=== PATIENT | male | born 1975 | race Two or more races ===

== ENCOUNTER 2016-04-05 14:16 | Inpatient (IN) | payer MEDICAID ==
[~2016-04-05] VITALS: Ht 177.8 cm; Wt 109.8 kg
[~2016-04-05 14:16] MED LIST: ALBUAER3 IN; CARI-277 PO; CARV6.25 PO; DIP25C PO; FAMO40TA49 OR; FURO20TA PO; HYDR-2457 PO; LACT10SO PO; LOSA50TA6 PO; MET10T PO; OMEP20CA5 PO; SIMV-13 OR
[2016-04-05 15:45] LABS: Basophils # (auto) 0 uL; Basophils % (auto) 0.7 % (0.0-2.0); Eosinophils # (auto) 0.1 uL; Eosinophils % (auto) 1.6 % (0.0-7.0); Hematocrit 52.4 % (41.0-53.0); Hemoglobin 17.2 g/dL (13.5-17.5); Lymphocytes # (auto) 2.1 uL; Lymphocytes % (auto) 28.2 % (10.0-50.0); Mean Corpuscular Hemoglobin 31.1 pg (28.0-32.0); Mean Corpuscular Hgb Conc. 32.8 g/dL (32.0-36.0); Mean Corpuscular Volume 94.9 fL (80.0-100.0); Mean Platelet Volume 8.6 fL (7.4-10.4); Monocytes # (auto) 0.7 uL; Monocytes % (auto) 9.6 % (0.0-12.0); Neutrophils # (auto) 4.5 uL; Neutrophils % (auto) 59.9 % (37.0-80.0); Platelet Count (auto) 256 10^3/uL (140-450); Red Cell Distribution Width 12.5 % (11.6-16.0); White Blood Cell 7.5 10^3/uL (4.4-10.8)
[2016-04-05 16:05] LABS: INR 1.06 (0.9-1.15); Partial Thromboplastin Time 24.2 sec (22.64-33.71); Prothrombin Time 10.9 sec (9.37-12.3)
[2016-04-05 16:12] LABS: Albumin 3.4 g/dL (3.4-5.0); BUN/Creatinine Ratio 11.8; Bilirubin, Total 0.3 mg/dL (0.2-1.0); Calcium 9.2 mg/dL (8.5-10.1); Potassium 4.5 mmol/L (3.5-5.1); Total Protein 7.4 g/dL (6.4-8.2)
[2016-04-05 16:16] LABS: B-Type Natriuretic Peptide 27.66 pg/mL (0-100)
[2016-04-05] MEDS ORDERED: ACETAMINOPHEN 325 MG TAB PO ONE ×2 (16:32→16:45)
[2016-04-05 16:58] LABS: Temperature: 22.4 C (20.0-25.0)
[2016-04-05] MEDS ORDERED: ONDANSETRON HCL 4 MG/2 ML VIAL IV ONE (18:15)
[2016-04-05] MEDS ORDERED: MORPHINE SULF INJ 2 MG/ML SYRINGE 1ML IV ONE (18:15)
[2016-04-05] MEDS ORDERED: MORPHINE SULF INJ 2 MG/ML SYRINGE 1ML IV PRN (18:30)
[2016-04-05] MEDS ORDERED: cefTRIAXone 1GM/50ML D5W 50 ML IV ONE (18:30)
[2016-04-05] MEDS ORDERED: LACTULOSE 20Gm/30ML SOLN PO PRN (18:30)
[2016-04-05] MEDS ORDERED: ACETAMINOPHEN 325 MG TAB PO PRN (18:30)
[2016-04-05] MEDS ORDERED: NITROGLYCERIN 0.4 MG SL TAB SL PRN (18:30)
[2016-04-05] MEDS ORDERED: CARISOPRODOL 350 MG TAB PO PRN (18:30)
[2016-04-05] MEDS ORDERED: ONDANSETRON HCL 4 MG/2 ML VIAL IV PRN (18:30)
[2016-04-05] MEDS ORDERED: diphenhdrAMINE HCL 25 MG CAP PO PRN (18:30)
[2016-04-05] MEDS ORDERED: TEMAZEPAM 15 MG CAP PO PRN (18:30)
[2016-04-05] MEDS: FUROSEMIDE 20 MG TAB PO SCH (18:36)
[2016-04-05 20:49] VITALS: BP 140/83
[2016-04-05 21:33] VITALS: BP 125/75
[2016-04-05] MEDS: MORPHINE SULF INJ 2 MG/ML SYRINGE 1ML IV PRN (22:23)
[2016-04-05] MEDS: METOCLOPRAMIDE HCL 10 MG TAB PO SCH (22:27)
[2016-04-05] MEDS: POTASSIUM CHLORIDE 8 MEQ TAB PO SCH (22:27)
[2016-04-05] MEDS: ATORVASTATIN 20 MG TAB PO SCH (22:27)
[2016-04-05] MEDS: FAMOTIDINE 20 MG TAB PO SCH (22:27)
[2016-04-05] MEDS: SODIUM CHLOR 0.9% PF (SALINE LOCK) 10ML VIAL IV SCH (22:31)
[2016-04-05] MEDS: CARVEDILOL 3.125 MG TAB PO SCH (22:31)
[2016-04-05 22:37] VITALS: BP 125/75
[2016-04-06] MEDS: IPRATROPIUM BROM 0.5 MG/2.5ML INH SOL NEB SCH ×4 (00:45→20:10)
[2016-04-06] MEDS: ALBUTEROL SULF 2.5 MG/0.5ML(0.5%) NEB SOLN NEB SCH ×4 (00:45→20:09)
[2016-04-06 01:22] VITALS: BP 125/75
[2016-04-06] MEDS: SODIUM CHLOR 0.9% PF (SALINE LOCK) 10ML VIAL IV SCH ×3 (05:04→22:25)
[2016-04-06] MEDS: MORPHINE SULF INJ 2 MG/ML SYRINGE 1ML IV PRN ×5 (05:05→23:47)
[2016-04-06] MEDS: METOCLOPRAMIDE HCL 10 MG TAB PO SCH ×3 (05:56→21:48)
[2016-04-06] MEDS: FUROSEMIDE 20 MG TAB PO SCH ×2 (05:57→17:45)
[2016-04-06 07:21] LABS: Basophils # (auto) 0 uL; Basophils % (auto) 0.6 % (0.0-2.0); Eosinophils # (auto) 0.2 uL; Eosinophils % (auto) 2.6 % (0.0-7.0); Hematocrit 53.8 % (41.0-53.0); Hemoglobin 17.2 g/dL (13.5-17.5); Lymphocytes # (auto) 2.9 uL; Lymphocytes % (auto) 35.3 % (10.0-50.0); Mean Corpuscular Hemoglobin 30.8 pg (28.0-32.0); Mean Platelet Volume 9.4 fL (7.4-10.4); Monocytes # (auto) 0.8 uL; Monocytes % (auto) 9.9 % (0.0-12.0); Neutrophils # (auto) 4.2 uL; Neutrophils % (auto) 51.6 % (37.0-80.0); Platelet Count (auto) 259 10^3/uL (140-450); Red Cell Distribution Width 12.5 % (11.6-16.0); White Blood Cell 8.1 10^3/uL (4.4-10.8)
[2016-04-06 08:00] VITALS: BP 117/85
[2016-04-06 08:40] LABS: Albumin 3.4 g/dL (3.4-5.0); BUN/Creatinine Ratio 13.5; Bilirubin, Total 0.3 mg/dL (0.2-1.0); Calcium 8.6 mg/dL (8.5-10.1); Potassium 3.9 mmol/L (3.5-5.1); Total Protein 7.4 g/dL (6.4-8.2)
[2016-04-06 09:00] VITALS: BP 117/85
[2016-04-06] MEDS: MULTIPLE VITAMIN TAB PO SCH (09:06)
[2016-04-06] MEDS: FAMOTIDINE 20 MG TAB PO SCH ×2 (09:06→21:47)
[2016-04-06] MEDS: cefTRIAXone 1GM/50ML D5W 50 ML IV SCH (09:06)
[2016-04-06] MEDS: POTASSIUM CHLORIDE 8 MEQ TAB PO SCH ×2 (09:06→21:48)
[2016-04-06] MEDS: CARVEDILOL 3.125 MG TAB PO SCH ×2 (09:07→21:46)
[2016-04-06] MEDS: LOSARTAN POTASSIUM 50 MG TAB PO SCH (09:07)
[2016-04-06] MEDS: HYDROcodone-ACET 10/325MG TAB PO PRN ×2 (09:09→21:47)
[2016-04-06 13:00] VITALS: BP 118/70
[2016-04-06 14:32] LABS: Urine Bilirubin Negative (Negative); Urine Blood TRACE /uL (Negative); Urine Color Yellow (Yellow); Urine Glucose Normal (Normal); Urine Ketone Negative (Negative); Urine Mucus FEW (None Seen); Urine Nitrite Negative (Negative); Urine RBC <1 /hpf (0 - 3); Urine Urobilinogen Normal (Negative); Urine pH 5.5 (5.0-8.0)
[2016-04-06 16:44] VITALS: BP 123/69
[2016-04-06] MEDS ORDERED: PNEUMOCOCCAL VACC POLYS 25 MCG/0.5 ML VIAL IM ONE (17:15)
[2016-04-06] MEDS: ATORVASTATIN 20 MG TAB PO SCH (21:45)
[2016-04-06 22:00] VITALS: BP 129/77
[2016-04-07] MEDS: MORPHINE SULF INJ 2 MG/ML SYRINGE 1ML IV PRN ×4 (04:25→17:27)
[2016-04-07 05:00] VITALS: BP 122/73
[2016-04-07] MEDS: SODIUM CHLOR 0.9% PF (SALINE LOCK) 10ML VIAL IV SCH ×2 (05:46→14:16)
[2016-04-07] MEDS: FUROSEMIDE 20 MG TAB PO SCH ×2 (05:52→17:33)
[2016-04-07] MEDS: METOCLOPRAMIDE HCL 10 MG TAB PO SCH ×2 (05:54→14:33)
[2016-04-07 05:59] LABS: Basophils # (auto) 0.1 uL; Basophils % (auto) 0.5 % (0.0-2.0); Eosinophils # (auto) 0.2 uL; Hematocrit 51.9 % (41.0-53.0); Lymphocytes # (auto) 2.6 uL; Lymphocytes % (auto) 27.4 % (10.0-50.0); Mean Corpuscular Hemoglobin 31.1 pg (28.0-32.0); Mean Corpuscular Hgb Conc. 32.8 g/dL (32.0-36.0); Mean Corpuscular Volume 94.9 fL (80.0-100.0); Mean Platelet Volume 8.7 fL (7.4-10.4); Monocytes # (auto) 0.9 uL; Monocytes % (auto) 9.7 % (0.0-12.0); Neutrophils # (auto) 5.8 uL; Neutrophils % (auto) 60.4 % (37.0-80.0); Platelet Count (auto) 252 10^3/uL (140-450); Red Cell Distribution Width 12.4 % (11.6-16.0); White Blood Cell 9.6 10^3/uL (4.4-10.8)
[2016-04-07 06:29] LABS: Albumin 3.4 g/dL (3.4-5.0); Bilirubin, Total 0.4 mg/dL (0.2-1.0); Calcium 8.7 mg/dL (8.5-10.1); Potassium 3.9 mmol/L (3.5-5.1)
[2016-04-07] MEDS: IPRATROPIUM BROM 0.5 MG/2.5ML INH SOL NEB SCH ×4 (07:25→19:03)
[2016-04-07] MEDS: ALBUTEROL SULF 2.5 MG/0.5ML(0.5%) NEB SOLN NEB SCH ×4 (07:25→19:03)
[2016-04-07] MEDS: cefTRIAXone 1GM/50ML D5W 50 ML IV SCH (08:49)
[2016-04-07] MEDS: POTASSIUM CHLORIDE 8 MEQ TAB PO SCH (08:51)
[2016-04-07] MEDS: FAMOTIDINE 20 MG TAB PO SCH (08:51)
[2016-04-07] MEDS: CARVEDILOL 3.125 MG TAB PO SCH (08:51)
[2016-04-07] MEDS: LOSARTAN POTASSIUM 50 MG TAB PO SCH (08:52)
[2016-04-07] MEDS: MULTIPLE VITAMIN TAB PO SCH (08:52)
[2016-04-07 09:16] VITALS: BP 115/56
[2016-04-07 11:49] VITALS: BP 106/49
[2016-04-07 17:30] VITALS: BP 126/77
== END 2016-04-07 19:35 | disposition left against medical advice (07) | DRG 144 ==
LOC: ER 14:19 → TELE 14:20 → TELE-WESTW 20:44
PROVIDERS: ADMIT Internal Medicine; ATTEND Internal Medicine
DX: J20.9 Acute bronchitis, unspecified (principal); I42.9 Cardiomyopathy, unspecified; I11.0 Hypertensive heart disease with heart failure; I50.32 Chronic diastolic (congestive) heart failure; J45.901 Unspecified asthma with (acute) exacerbation; E66.01 Morbid (severe) obesity due to excess calories; F17.210 Nicotine dependence, cigarettes, uncomplicated; I25.10 Atherosclerotic heart disease of native coronary artery without angina pectoris; Z53.21 Procedure and treatment not carried out due to patient leaving prior to being seen by health care provider; E78.5 Hyperlipidemia, unspecified; F41.9 Anxiety disorder, unspecified; G47.30 Sleep apnea, unspecified; Z23 Encounter for immunization; Z68.34 Body mass index [BMI] 34.0-34.9, adult; Z88.6 Allergy status to analgesic agent; Z88.8 Allergy status to other drugs, medicaments and biological substances; Z79.899 Other long term (current) drug therapy; Z82.3 Family history of stroke; Z82.49 Family history of ischemic heart disease and other diseases of the circulatory system; Z83.3 Family history of diabetes mellitus
CPT/HCPCS: 36415; 71020; 76705; 80053; 81001; 83690; 83880; 84484; 85025; 85610; 85730; 87070; 87077; 87186; 87205; 93005; 93306; 94640; 94761; 96365; 96375; G0434; J0696; J2405

== ENCOUNTER 2016-06-20 13:22 | Emergency (ER) | payer SELFPAY ==
[~2016-06-20] VITALS: Ht 177.8 cm; Wt 99.8 kg
[2016-06-20 14:07] LABS: Basophils # (auto) 0 uL; Basophils % (auto) 0.3 % (0.0-2.0); Eosinophils # (auto) 0.2 uL; Eosinophils % (auto) 2.2 % (0.0-7.0); Hematocrit 52.4 % (41.0-53.0); Hemoglobin 17.7 g/dL (13.5-17.5); Lymphocytes # (auto) 2.1 uL; Lymphocytes % (auto) 24.9 % (10.0-50.0); Mean Corpuscular Hemoglobin 31.5 pg (28.0-32.0); Mean Corpuscular Hgb Conc. 33.7 g/dL (32.0-36.0); Mean Corpuscular Volume 93.4 fL (80.0-100.0); Mean Platelet Volume 8.2 fL (7.4-10.4); Monocytes # (auto) 0.8 uL; Monocytes % (auto) 9.3 % (0.0-12.0); Neutrophils # (auto) 5.4 uL; Neutrophils % (auto) 63.3 % (37.0-80.0); Platelet Count (auto) 275 10^3/uL (140-450); Red Cell Distribution Width 12.9 % (11.6-16.0); White Blood Cell 8.6 10^3/uL (4.4-10.8)
[2016-06-20 14:30] LABS: Albumin 3.6 g/dL (3.4-5.0); Alkaline Phosphatase 72 U/L (45-117); Anion Gap 6 (5-15); Aspartate Aminotransferase 23 U/L (15-37); BUN/Creatinine Ratio 12.5; Bilirubin, Total 0.3 mg/dL (0.2-1.0); Blood Urea Nitrogen 11 mg/dL (7-18); Calcium 9.3 mg/dL (8.5-10.1); Carbon Dioxide 30 mmol/L (21-32); Chloride 106 mmol/L (98-107); GFR African American 124 mL/min; GFR Non-African American 102 mL/min; Glucose 98 mg/dL (74-106); Magnesium 2.3 mg/dL (1.6-2.6); Potassium 4.3 mmol/L (3.5-5.1); Sodium 142 mmol/L (136-145); Total Protein 8.1 g/dL (6.4-8.2)
[2016-06-20 16:59] VITALS: BP 154/89
[2016-06-20] MEDS ORDERED: LORazepam 2MG/ML-1ML VIAL IV ONE (17:00)
[2016-06-20] MEDS ORDERED: ASPirin 81 mg TAB PO ONE (17:00)
== END 2016-06-20 18:11 | disposition home or self-care (01) ==
LOC: ER 13:22
DX: F41.9 Anxiety disorder, unspecified (principal); J45.909 Unspecified asthma, uncomplicated; I11.0 Hypertensive heart disease with heart failure; I50.9 Heart failure, unspecified; E78.5 Hyperlipidemia, unspecified; F17.210 Nicotine dependence, cigarettes, uncomplicated; F12.10 Cannabis abuse, uncomplicated; Z88.6 Allergy status to analgesic agent; Z88.8 Allergy status to other drugs, medicaments and biological substances; Z91.041 Radiographic dye allergy status
CPT/HCPCS: 36415; 71020; 80053; 83735; 84484; 85025; 93005; 93970; 94761; 96374; 99285; J2060

== ENCOUNTER 2016-08-20 13:39 | Inpatient (IN) | payer MEDICAID ==
[~2016-08-20] VITALS: Ht 177.8 cm; Wt 104.4 kg
[~2016-08-20 13:39] MED LIST changes: -LACT10SO PO; +LACT10SO3 PO; -OMEP20CA5 PO; +OMEP20CA74 PO
[2016-08-20 14:29] LABS: Basophils # (auto) 0.1 uL; Basophils % (auto) 1.2 % (0.0-2.0); CONDITION Y; Eosinophils # (auto) 0.2 uL; Eosinophils % (auto) 1.9 % (0.0-7.0); Hematocrit 54.7 % (41.0-53.0); Hemoglobin 18.7 g/dL (13.5-17.5); Lymphocytes # (auto) 1.7 uL; Lymphocytes % (auto) 20.3 % (10.0-50.0); Mean Corpuscular Hemoglobin 32.2 pg (28.0-32.0); Mean Corpuscular Hgb Conc. 34.1 g/dL (32.0-36.0); Mean Corpuscular Volume 94.3 fL (80.0-100.0); Mean Platelet Volume 8.3 fL (7.4-10.4); Monocytes # (auto) 0.9 uL; Monocytes % (auto) 10.4 % (0.0-12.0); Neutrophils # (auto) 5.6 uL; Neutrophils % (auto) 66.2 % (37.0-80.0); Platelet Count (auto) 250 10^3/uL (140-450); Red Cell Distribution Width 12.6 % (11.6-16.0); White Blood Cell 8.5 10^3/uL (4.4-10.8)
[2016-08-20 14:46] LABS: Albumin 3.6 g/dL (3.4-5.0); BUN/Creatinine Ratio 15.3; Bilirubin, Total 0.7 mg/dL (0.2-1.0); Calcium 9.3 mg/dL (8.5-10.1); Potassium 4.1 mmol/L (3.5-5.1); Total Protein 7.5 g/dL (6.4-8.2)
[2016-08-20 15:29] LABS: Urine Bilirubin Negative (Negative); Urine Color Yellow (Yellow); Urine Glucose Normal (Normal); Urine Ketone Negative (Negative); Urine Nitrite Negative (Negative); Urine RBC 3 /hpf (0 - 3); Urine Squamous Epithelial Cell FEW /hpf (<5); Urine pH 5.5 (5.0-8.0)
[2016-08-20 15:33] LABS: Urine Blood 1+ /uL (Negative)
[2016-08-20] MEDS ORDERED: SODIUM CHLORIDE 0.9% 1,000 ML IVB ONE (19:43)
[2016-08-20 20:32] LABS: INR 1.05 (0.9-1.15); Partial Thromboplastin Time 26.1 sec (22.64-33.71); Prothrombin Time 11.5 sec (9.37-12.3)
[2016-08-20 21:46] LABS: B-Type Natriuretic Peptide 27.3 pg/mL (0-100)
[2016-08-20 21:50] LABS: Temperature: 23.7 C (20.0-25.0)
[2016-08-20] MEDS ORDERED: ACETAMINOPHEN 325 MG TAB PO PRN (23:45)
[2016-08-21] VITALS (9 sets, daily range): BP systolic 111–138; BP diastolic 54–88
[2016-08-21] MEDS: HYDROcodone-ACET 5/325MG TAB PO PRN ×4 (00:26→22:34)
[2016-08-21] MEDS: TEMAZEPAM 15 MG CAP PO PRN ×2 (00:51→22:00)
[2016-08-21 06:37] LABS: Basophils # (auto) 0 uL; Basophils % (auto) 0.3 % (0.0-2.0); CONDITION Y; Calcium 8.3 mg/dL (8.5-10.1); Eosinophils # (auto) 0.2 uL; Eosinophils % (auto) 2.8 % (0.0-7.0); Hematocrit 49.8 % (41.0-53.0); Hemoglobin 17.5 g/dL (13.5-17.5); Lymphocytes % (auto) 35.3 % (10.0-50.0); Mean Corpuscular Hgb Conc. 35.2 g/dL (32.0-36.0); Mean Corpuscular Volume 93.8 fL (80.0-100.0); Mean Platelet Volume 8.6 fL (7.4-10.4); Monocytes # (auto) 0.8 uL; Neutrophils # (auto) 4.5 uL; Neutrophils % (auto) 52.6 % (37.0-80.0); Platelet Count (auto) 221 10^3/uL (140-450); Potassium 3.6 mmol/L (3.5-5.1); Red Cell Distribution Width 12.9 % (11.6-16.0); White Blood Cell 8.6 10^3/uL (4.4-10.8)
[2016-08-21 06:40] LABS: Bilirubin, Total 0.7 mg/dL (0.2-1.0); Total Protein 6.5 g/dL (6.4-8.2)
[2016-08-21] MEDS: FUROSEMIDE 20 MG TAB PO SCH (09:55)
[2016-08-21] MEDS: CARVEDILOL 12.5 MG TAB PO SCH ×2 (09:56→22:00)
[2016-08-21] MEDS: FAMOTIDINE 20 MG TAB PO SCH ×2 (09:56→21:59)
[2016-08-21] MEDS: ENOXAPARIN SOD 40 MG/0.4 ML SYRINGE SC SCH (09:56)
[2016-08-21] MEDS ORDERED: LORazepam 2MG/ML-1ML VIAL IV PRN (17:45)
[2016-08-21] MEDS: ATORVASTATIN 20 MG TAB PO SCH (21:59)
[2016-08-21] MEDS ORDERED: PATIENTS OWN MEDICATION (simvastatin 20 MG) PO SCH ×2 (22:00)
[2016-08-21] MEDS ORDERED: ATORVASTATIN 20 MG TAB PO SCH (22:00)
[2016-08-21] MEDS: ALBUTEROL SULF 2.5 MG/0.5ML(0.5%) NEB SOLN NEB PRN (22:12)
[2016-08-22] MEDS: HYDROcodone-ACET 5/325MG TAB PO PRN ×4 (02:32→20:42)
[2016-08-22 05:17] VITALS: BP 110/87
[2016-08-22 08:00] VITALS: BP 132/77
[2016-08-22 08:30] VITALS: BP 132/77
[2016-08-22] MEDS: FAMOTIDINE 20 MG TAB PO SCH ×2 (09:51→21:47)
[2016-08-22] MEDS: CARVEDILOL 12.5 MG TAB PO SCH ×2 (09:51→21:49)
[2016-08-22] MEDS: ASPirin-EC 81 mg tab PO SCH (09:51)
[2016-08-22] MEDS: ENOXAPARIN SOD 40 MG/0.4 ML SYRINGE SC SCH (09:51)
[2016-08-22] MEDS: FUROSEMIDE 20 MG TAB PO SCH (09:51)
[2016-08-22 12:30] VITALS: BP 133/61
[2016-08-22 17:10] VITALS: BP 120/65
[2016-08-22] MEDS: ATORVASTATIN 20 MG TAB PO SCH (21:49)
[2016-08-22 22:00] VITALS: BP 109/61
[2016-08-22] MEDS: TEMAZEPAM 15 MG CAP PO PRN (22:47)
[2016-08-23] VITALS (7 sets, daily range): BP systolic 103–123; BP diastolic 61–74
[2016-08-23] MEDS: HYDROcodone-ACET 5/325MG TAB PO PRN ×4 (00:49→19:08)
[2016-08-23 06:33] LABS: Basophils # (auto) 0 uL; Basophils % (auto) 0.4 % (0.0-2.0); CONDITION Y; Eosinophils # (auto) 0.2 uL; Eosinophils % (auto) 2.5 % (0.0-7.0); Hemoglobin 17.4 g/dL (13.5-17.5); Lymphocytes # (auto) 2.9 uL; Lymphocytes % (auto) 40.3 % (10.0-50.0); Mean Corpuscular Hemoglobin 32.3 pg (28.0-32.0); Mean Corpuscular Hgb Conc. 34.7 g/dL (32.0-36.0); Mean Corpuscular Volume 93.2 fL (80.0-100.0); Mean Platelet Volume 8.9 fL (7.4-10.4); Monocytes # (auto) 0.7 uL; Monocytes % (auto) 9.9 % (0.0-12.0); Neutrophils # (auto) 3.4 uL; Neutrophils % (auto) 46.9 % (37.0-80.0); Platelet Count (auto) 221 10^3/uL (140-450); Red Cell Distribution Width 12.8 % (11.6-16.0); White Blood Cell 7.2 10^3/uL (4.4-10.8)
[2016-08-23 06:50] LABS: Potassium 3.7 mmol/L (3.5-5.1)
[2016-08-23 06:55] LABS: BUN/Creatinine Ratio 14.3; Calcium 8.3 mg/dL (8.5-10.1)
[2016-08-23 06:58] LABS: Bilirubin, Total 0.4 mg/dL (0.2-1.0); Total Protein 6.7 g/dL (6.4-8.2)
[2016-08-23] MEDS: LORazepam 2MG/ML-1ML VIAL IV PRN (08:46)
[2016-08-23] MEDS: FAMOTIDINE 20 MG TAB PO SCH ×2 (09:03→22:39)
[2016-08-23] MEDS: ASPirin-EC 81 mg tab PO SCH (09:03)
[2016-08-23] MEDS: CARVEDILOL 12.5 MG TAB PO SCH ×2 (09:03→22:38)
[2016-08-23] MEDS: ENOXAPARIN SOD 40 MG/0.4 ML SYRINGE SC SCH (09:04)
[2016-08-23] MEDS: FUROSEMIDE 20 MG TAB PO SCH (09:04)
[2016-08-23] MEDS: ONDANSETRON HCL 4 MG/2 ML VIAL IV PRN (13:39)
[2016-08-23] MEDS ORDERED: NITROGLYCERIN 0.4 MG SL TAB SL PRN (14:00)
[2016-08-23] MEDS ORDERED: ACETAMINOPHEN 325 MG TAB PO PRN (14:00)
[2016-08-23] MEDS: MORPHINE SULF INJ 2 MG/ML SYRINGE 1ML IV PRN (14:32)
[2016-08-23] MEDS: ATORVASTATIN 20 MG TAB PO SCH (22:39)
[2016-08-23] MEDS: TEMAZEPAM 15 MG CAP PO PRN (22:40)
[2016-08-23] MEDS: ALBUTEROL SULF 2.5 MG/0.5ML(0.5%) NEB SOLN NEB PRN (22:41)
[2016-08-24 05:30] VITALS: BP 109/62
[2016-08-24] MEDS: MORPHINE SULF INJ 2 MG/ML SYRINGE 1ML IV PRN (07:05)
[2016-08-24] MEDS: ONDANSETRON HCL 4 MG/2 ML VIAL IV PRN ×2 (08:49→16:06)
[2016-08-24 09:00] VITALS: BP 109/75
[2016-08-24] MEDS: CARVEDILOL 12.5 MG TAB PO SCH ×2 (10:00→21:24)
[2016-08-24 13:00] VITALS: BP 111/68
[2016-08-24] MEDS: ASPirin-EC 81 mg tab PO SCH (14:33)
[2016-08-24] MEDS: FUROSEMIDE 20 MG TAB PO SCH (14:34)
[2016-08-24] MEDS: FAMOTIDINE 20 MG TAB PO SCH ×2 (14:34→21:24)
[2016-08-24] MEDS: ENOXAPARIN SOD 40 MG/0.4 ML SYRINGE SC SCH (14:34)
[2016-08-24 15:45] VITALS: BP 109/75
[2016-08-24] MEDS: MORPHINE SULFATE 4 MG/ML SYRG IV PRN ×2 (16:06→21:34)
[2016-08-24 16:22] VITALS: BP 102/54
[2016-08-24] MEDS: ATORVASTATIN 20 MG TAB PO SCH (21:24)
[2016-08-24 22:00] VITALS: BP 130/73
[2016-08-24] MEDS: LORazepam 2MG/ML-1ML VIAL IV PRN (23:11)
[2016-08-25 05:30] VITALS: BP 110/56
[2016-08-25] MEDS: HYDROcodone-ACET 5/325MG TAB PO PRN ×2 (06:08→16:05)
[2016-08-25 07:17] VITALS: BP 108/54
[2016-08-25] MEDS: CARVEDILOL 12.5 MG TAB PO SCH (09:27)
[2016-08-25] MEDS: FAMOTIDINE 20 MG TAB PO SCH (09:28)
[2016-08-25] MEDS: ASPirin-EC 81 mg tab PO SCH (09:28)
[2016-08-25] MEDS: FUROSEMIDE 20 MG TAB PO SCH (09:28)
[2016-08-25] MEDS: ENOXAPARIN SOD 40 MG/0.4 ML SYRINGE SC SCH (09:29)
[2016-08-25] MEDS ORDERED: ADENOSINE 88 MG in GIVE UN-DILUTED 0 ML IV ONE ×2 (09:45→10:00)
[2016-08-25 13:02] VITALS: BP 113/63
[2016-08-25 16:37] VITALS: BP 123/67
[2016-08-25] MEDS ORDERED: ASPI325T25 PO (19:39)
[2016-08-25 20:27] VITALS: BP 108/54
== END 2016-08-25 20:45 | disposition home or self-care (01) | DRG 204 ==
LOC: ER 13:39 → OVERFLOW 13:40 → TELE-WESTW 08-21 02:08 → WEST WING 08-21 03:41 → TELE-WESTW 08-23 15:53
PROVIDERS: ADMIT Nurse Practitioner; ATTEND Internal Medicine
PROC: 5A09457 Assistance with Respiratory Ventilation, 24-96 Consecutive Hours, Continuous Positive Airway Pressure (ICD-10-PCS; principal; 2016-08-21)
DX: R55 Syncope and collapse (principal); I11.0 Hypertensive heart disease with heart failure; I50.9 Heart failure, unspecified; I42.9 Cardiomyopathy, unspecified; G93.89 Other specified disorders of brain; E78.5 Hyperlipidemia, unspecified; Z86.73 Personal history of transient ischemic attack (TIA), and cerebral infarction without residual deficits; F41.9 Anxiety disorder, unspecified; G47.33 Obstructive sleep apnea (adult) (pediatric); E66.9 Obesity, unspecified; F15.90 Other stimulant use, unspecified, uncomplicated; G40.909 Epilepsy, unspecified, not intractable, without status epilepticus; G89.29 Other chronic pain; I20.0 Unstable angina; F17.210 Nicotine dependence, cigarettes, uncomplicated; G62.9 Polyneuropathy, unspecified; Z79.82 Long term (current) use of aspirin; Z79.899 Other long term (current) drug therapy; Z82.3 Family history of stroke; Z82.49 Family history of ischemic heart disease and other diseases of the circulatory system; Z83.3 Family history of diabetes mellitus; Z91.14 Patient's other noncompliance with medication regimen; Z83.2 Family history of diseases of the blood and blood-forming organs and certain disorders involving the immune mechanism; Z88.8 Allergy status to other drugs, medicaments and biological substances; Z88.6 Allergy status to analgesic agent; Z91.041 Radiographic dye allergy status; Z68.33 Body mass index [BMI] 33.0-33.9, adult
CPT/HCPCS: 36415; 70450; 70551; 71010; 80053; 80307; 81001; 82962; 83735; 83880; 84443; 84484; 85025; 85610; 85730; 93005; 93017; 93886; 94640; 94660; 94761; 95819; 96360; J0153; J2405

== ENCOUNTER 2016-10-10 11:42 | Emergency (ER) | payer MEDICAID ==
[~2016-10-10] VITALS: Ht 177.8 cm; Wt 102.1 kg
[~2016-10-10 11:42] MED LIST changes: +ASPI325T25 PO
[2016-10-10 13:23] VITALS: BP 129/84
[2016-10-10] MEDS ORDERED: ACETAMINOPHEN 325 MG TAB PO ONE (14:00)
[2016-10-10] MEDS ORDERED: MORPHINE SULF INJ 2 MG/ML SYRINGE 1ML IM ONE (15:15)
== END 2016-10-10 15:40 | disposition left against medical advice (07) ==
LOC: ER 11:42
DX: M54.9 Dorsalgia, unspecified (principal); G89.29 Other chronic pain; F17.210 Nicotine dependence, cigarettes, uncomplicated; M25.552 Pain in left hip; M19.90 Unspecified osteoarthritis, unspecified site; J45.909 Unspecified asthma, uncomplicated; I11.0 Hypertensive heart disease with heart failure; I50.9 Heart failure, unspecified; E78.5 Hyperlipidemia, unspecified; Z91.041 Radiographic dye allergy status; Z88.6 Allergy status to analgesic agent; Z79.82 Long term (current) use of aspirin; Z79.899 Other long term (current) drug therapy; Z86.73 Personal history of transient ischemic attack (TIA), and cerebral infarction without residual deficits; W18.39XA Other fall on same level, initial encounter; Y93.89 Activity, other specified; Y92.89 Other specified places as the place of occurrence of the external cause; Y99.8 Other external cause status
CPT/HCPCS: 72100; 73502; 96372; 99284; J2270

== ENCOUNTER 2017-02-24 09:52 | Emergency (ER) | payer MEDICAID ==
[~2017-02-24] VITALS: Ht 177.8 cm; Wt 102.1 kg
[2017-02-24 10:51] LABS: Eosinophils # (auto) 0.2 uL; Hemoglobin 18.9 g/dL (13.5-17.5); White Blood Cell 8.3 10^3/uL (4.4-10.8)
[2017-02-24 10:53] LABS: Basophils # (auto) 0 uL; Basophils % (auto) 0.6 % (0.0-2.0); Hematocrit 54.4 % (41.0-53.0); Lymphocytes # (auto) 2.4 uL; Mean Corpuscular Hemoglobin 32.9 pg (28.0-32.0); Mean Corpuscular Hgb Conc. 34.8 g/dL (32.0-36.0); Mean Corpuscular Volume 94.5 fL (80.0-100.0); Monocytes # (auto) 0.7 uL; Monocytes % (auto) 8.9 % (0.0-12.0); Neutrophils # (auto) 4.9 uL; Neutrophils % (auto) 59.5 % (37.0-80.0); Nucleated Red Blood Cells % 0.2 %; Platelet Count (auto) 247 10^3/uL (140-450); Red Blood Cells 5.75 10^6/uL (4.5-5.90); Red Cell Distribution Width 12.5 % (11.8-14.3)
[2017-02-24 11:13] LABS: Alanine Aminotransferase 46 U/L (16-61); Albumin 3.5 g/dL (3.4-5.0); Anion Gap 4 (5-15); Aspartate Aminotransferase 28 U/L (15-37); BUN/Creatinine Ratio 9.2; Blood Urea Nitrogen 9 mg/dL (7-18); Calcium 9.7 mg/dL (8.5-10.1); Carbon Dioxide 29 mmol/L (21-32); Chloride 108 mmol/L (98-107); GFR African American 109 mL/min; GFR Non-African American 90 mL/min; Glucose 113 mg/dL (74-106); Sodium 141 mmol/L (136-145)
[2017-02-24 11:17] LABS: Alkaline Phosphatase 61 U/L (45-117); Bilirubin, Total 0.5 mg/dL (0.2-1.0); Total Protein 7.7 g/dL (6.4-8.2)
[2017-02-24 17:04] VITALS: BP 127/84
== END 2017-02-24 17:20 | disposition home or self-care (01) ==
LOC: ER 09:52
DX: R07.89 Other chest pain (principal); F19.10 Other psychoactive substance abuse, uncomplicated; I11.0 Hypertensive heart disease with heart failure; I50.9 Heart failure, unspecified; M19.90 Unspecified osteoarthritis, unspecified site; E78.5 Hyperlipidemia, unspecified; J45.909 Unspecified asthma, uncomplicated; F17.210 Nicotine dependence, cigarettes, uncomplicated; Z86.73 Personal history of transient ischemic attack (TIA), and cerebral infarction without residual deficits; Z91.041 Radiographic dye allergy status; Z88.6 Allergy status to analgesic agent; Z79.82 Long term (current) use of aspirin; Z79.899 Other long term (current) drug therapy
CPT/HCPCS: 36415; 71020; 80053; 84484; 85025; 93005

== ENCOUNTER 2017-06-23 15:55 | Emergency (ER) | payer MEDICAID ==
[~2017-06-23] VITALS: Ht 177.8 cm; Wt 105.2 kg
[2017-06-23 16:56] LABS: Eosinophils # (auto) 0.1 uL; Hemoglobin 18.2 g/dL (13.5-17.5); Lymphocytes # (auto) 2.9 uL; Mean Corpuscular Hemoglobin 32.7 pg (28.0-32.0); Neutrophils # (auto) 3.7 uL; Nucleated Red Blood Cells % 0.1 %; Red Blood Cells 5.58 10^6/uL (4.5-5.90); White Blood Cell 7.5 10^3/uL (4.4-10.8)
[2017-06-23 16:58] LABS: Basophils # (auto) 0 uL; Basophils % (auto) 0.7 % (0.0-2.0); Eosinophils % (auto) 1.6 % (0.0-7.0); Hematocrit 52.4 % (41.0-53.0); Lymphocytes % (auto) 39.1 % (10.0-50.0); Mean Corpuscular Hgb Conc. 34.8 g/dL (32.0-36.0); Monocytes # (auto) 0.7 uL; Monocytes % (auto) 9.7 % (0.0-12.0); Neutrophils % (auto) 48.9 % (37.0-80.0); Platelet Count (auto) 245 10^3/uL (140-450); Red Cell Distribution Width 12.4 % (11.8-14.3)
[2017-06-23 17:20] LABS: Alanine Aminotransferase 48 U/L (16-61); Albumin 3.7 g/dL (3.4-5.0); Alkaline Phosphatase 66 U/L (45-117); Anion Gap 7 (5-15); Aspartate Aminotransferase 25 U/L (15-37); BUN/Creatinine Ratio 14.2; Bilirubin, Total 0.3 mg/dL (0.2-1.0); Blood Urea Nitrogen 15 mg/dL (7-18); Carbon Dioxide 26 mmol/L (21-32); Chloride 107 mmol/L (98-107); GFR African American 100 mL/min; GFR Non-African American 82 mL/min; Glucose 86 mg/dL (74-106); Magnesium 2.3 mg/dL (1.6-2.6); Sodium 140 mmol/L (136-145)
[2017-06-23] MEDS ORDERED: PANTOPRAZOLE 40 MG/10 ML VIAL IV STA (17:43)
[2017-06-23] MEDS ORDERED: SODIUM CHLORIDE 0.9% 1,000 ML IVB ONE (17:43)
[2017-06-23] MEDS ORDERED: MORPHINE SULFATE 8mg/ml INJ SDV IV ONE (17:45)
[2017-06-23] MEDS ORDERED: PROCHLORPERAZINE EDISYLATE 5 MG/ML 2ML VIAL IV ONE (17:45)
[2017-06-23 17:51] VITALS: BP 118/72
== END 2017-06-23 20:31 | disposition home or self-care (01) ==
LOC: ER 16:00
DX: R07.89 Other chest pain (principal); R11.10 Vomiting, unspecified; F12.10 Cannabis abuse, uncomplicated; M19.90 Unspecified osteoarthritis, unspecified site; J45.909 Unspecified asthma, uncomplicated; I50.9 Heart failure, unspecified; I11.0 Hypertensive heart disease with heart failure; M54.9 Dorsalgia, unspecified; G89.29 Other chronic pain; F17.210 Nicotine dependence, cigarettes, uncomplicated; Z91.041 Radiographic dye allergy status; Z79.82 Long term (current) use of aspirin; Z86.73 Personal history of transient ischemic attack (TIA), and cerebral infarction without residual deficits
CPT/HCPCS: 36415; 71046; 80053; 83735; 84484; 85025; 93005; 94761; 96361; 96374; 96375; 99285; C9113; J0780; J2270

== ENCOUNTER 2017-08-27 04:47 | Emergency (ER) | payer MEDICAID ==
[~2017-08-27] VITALS: Ht 177.8 cm; Wt 102.1 kg
[2017-08-27 05:54] LABS: Amphetamine Screen, Urine NEGATIVE (NEGATIVE); Barbiturate Scree,Urine NEGATIVE (NEGATIVE); Benzodiazephine Screen, Urine NEGATIVE (NEGATIVE); Cannabinoid Screen, Urine NEGATIVE (NEGATIVE); Cocaine Screen, Urine NEGATIVE (NEGATIVE); Opiate Scree,Urine NEGATIVE (NEGATIVE); Phencyclidine Screen, Urine NEGATIVE (NEGATIVE)
[2017-08-27 06:17] LABS: Urine Bacteria FEW /hpf (None Seen); Urine Blood Negative /uL (Negative); Urine Mucus FEW (None Seen); Urine Specific Gravity 1.003 (1.001-1.035); Urine WBC <1 /hpf (0 - 3)
[2017-08-27 06:35] LABS: Basophils # (auto) 0.1 uL; Basophils % (auto) 0.7 % (0.0-2.0); Eosinophils # (auto) 0.2 uL; Eosinophils % (auto) 1.9 % (0.0-7.0); Hematocrit 50.7 % (41.0-53.0); Hemoglobin 17.6 g/dL (13.5-17.5); Lymphocytes % (auto) 36.7 % (10.0-50.0); Mean Corpuscular Hemoglobin 32.9 pg (28.0-32.0); Mean Corpuscular Hgb Conc. 34.7 g/dL (32.0-36.0); Mean Corpuscular Volume 94.9 fL (80.0-100.0); Monocytes # (auto) 0.8 uL; Monocytes % (auto) 9.5 % (0.0-12.0); Neutrophils # (auto) 4.2 uL; Neutrophils % (auto) 51.2 % (37.0-80.0); Nucleated Red Blood Cells % 0.2 %; Platelet Count (auto) 246 10^3/uL (140-450); Red Blood Cells 5.34 10^6/uL (4.5-5.90); Red Cell Distribution Width 12.3 % (11.8-14.3); White Blood Cell 8.2 10^3/uL (4.4-10.8)
[2017-08-27 06:53] LABS: INR 0.99 (0.9-1.15); Partial Thromboplastin Time 25.4 sec (23.78-33.04); Prothrombin Time 10.6 sec (9.27-12.13)
[2017-08-27 06:56] LABS: Alanine Aminotransferase 46 U/L (16-61); Albumin 3.4 g/dL (3.4-5.0); Anion Gap 7 (5-15); Aspartate Aminotransferase 21 U/L (15-37); BUN/Creatinine Ratio 9.5; Blood Urea Nitrogen 8 mg/dL (7-18); Calcium 8.2 mg/dL (8.5-10.1); Carbon Dioxide 25 mmol/L (21-32); Chloride 109 mmol/L (98-107); GFR African American 130 mL/min; GFR Non-African American 108 mL/min; Glucose 88 mg/dL (74-106); Potassium 4.2 mmol/L (3.5-5.1); Sodium 141 mmol/L (136-145)
[2017-08-27 07:00] LABS: Alkaline Phosphatase 60 U/L (45-117); Bilirubin, Total 0.2 mg/dL (0.2-1.0); Total Protein 7.2 g/dL (6.4-8.2)
[2017-08-27] MEDS ORDERED: SODIUM CHLORIDE 0.9% 1,000 ML IV ONE (07:02)
[2017-08-27] MEDS ORDERED: METOCLOPRAMIDE HCL 5MG/ml INJ 2ml VIAL IV ONE (07:15)
[2017-08-27] MEDS ORDERED: MORPHINE SULF INJ 2 MG/ML SYRINGE 1ML IV ONE (07:15)
[2017-08-27 10:42] VITALS: BP 127/76
== END 2017-08-27 11:01 | disposition home or self-care (01) ==
LOC: ER 04:47
DX: G89.29 Other chronic pain (principal); M54.5 Low back pain; I42.9 Cardiomyopathy, unspecified; F10.10 Alcohol abuse, uncomplicated; I11.0 Hypertensive heart disease with heart failure; I50.9 Heart failure, unspecified; E78.5 Hyperlipidemia, unspecified; M19.90 Unspecified osteoarthritis, unspecified site; F17.210 Nicotine dependence, cigarettes, uncomplicated; J45.909 Unspecified asthma, uncomplicated; R51 Headache; Y90.6 Blood alcohol level of 120-199 mg/100 ml; Z86.73 Personal history of transient ischemic attack (TIA), and cerebral infarction without residual deficits
CPT/HCPCS: 36415; 70450; 71046; 80053; 80307; 80320; 81001; 83735; 84484; 85025; 85610; 85730; 93005; 94761; 96361; 96374; 96375; 99285; J2270; J2765; J7030

== ENCOUNTER 2017-08-29 15:40 | Emergency (ER) | payer MEDICAID ==
[~2017-08-29] VITALS: Ht 177.8 cm; Wt 102.1 kg
[2017-08-29] MEDS ORDERED: SODIUM CHLORIDE 0.9% 1,000 ML IV ONE ×2 (15:55)
[2017-08-29] MEDS ORDERED: SODIUM CHLORIDE 0.9% 3,000 ML IV ONE (16:00)
[2017-08-29 17:57] VITALS: BP 128/86
[2017-08-29 18:05] LABS: Basophils # (auto) 0.1 uL; Basophils % (auto) 0.7 % (0.0-2.0); Eosinophils # (auto) 0.1 uL; Eosinophils % (auto) 1.4 % (0.0-7.0); Hematocrit 48.5 % (41.0-53.0); Hemoglobin 16.9 g/dL (13.5-17.5); Lymphocytes # (auto) 1.5 uL; Lymphocytes % (auto) 19.9 % (10.0-50.0); Mean Corpuscular Hemoglobin 33.5 pg (28.0-32.0); Mean Corpuscular Hgb Conc. 34.9 g/dL (32.0-36.0); Mean Corpuscular Volume 95.9 fL (80.0-100.0); Monocytes # (auto) 0.8 uL; Monocytes % (auto) 10.6 % (0.0-12.0); Neutrophils # (auto) 5.1 uL; Neutrophils % (auto) 67.4 % (37.0-80.0); Nucleated Red Blood Cells % 0.4 %; Platelet Count (auto) 223 10^3/uL (140-450); Red Blood Cells 5.06 10^6/uL (4.5-5.90); Red Cell Distribution Width 12.6 % (11.8-14.3); White Blood Cell 7.6 10^3/uL (4.4-10.8)
[2017-08-29 18:15] LABS: Alanine Aminotransferase 40 U/L (16-61); Albumin 3.2 g/dL (3.4-5.0); Alkaline Phosphatase 63 U/L (45-117); Anion Gap 7 (5-15); Aspartate Aminotransferase 26 U/L (15-37); BUN/Creatinine Ratio 11.6; Bilirubin, Total 0.5 mg/dL (0.2-1.0); Blood Urea Nitrogen 11 mg/dL (7-18); Calcium 8.1 mg/dL (8.5-10.1); Carbon Dioxide 26 mmol/L (21-32); Chloride 109 mmol/L (98-107); GFR African American 113 mL/min; GFR Non-African American 93 mL/min; Glucose 125 mg/dL (74-106); Potassium 3.8 mmol/L (3.5-5.1); Sodium 142 mmol/L (136-145); Total Protein 6.7 g/dL (6.4-8.2)
== END 2017-08-29 17:59 | disposition home or self-care (01) ==
LOC: EDBD 15:40 → ER 15:43
DX: E86.0 Dehydration (principal); J45.909 Unspecified asthma, uncomplicated; E78.5 Hyperlipidemia, unspecified; I10 Essential (primary) hypertension; F17.210 Nicotine dependence, cigarettes, uncomplicated; Z86.73 Personal history of transient ischemic attack (TIA), and cerebral infarction without residual deficits; Z88.6 Allergy status to analgesic agent; Z91.041 Radiographic dye allergy status
CPT/HCPCS: 36415; 80053; 84484; 85025; 93005; 96360; 96361; 99285; J7030

== ENCOUNTER 2017-10-30 14:30 | Emergency (ER) | payer MEDICAID ==
[~2017-10-30] VITALS: Ht 177.8 cm; Wt 102.1 kg
[2017-10-30 16:58] LABS: Basophils # (auto) 0.1 uL; Basophils % (auto) 0.8 % (0.0-2.0); Eosinophils # (auto) 0.1 uL; Eosinophils % (auto) 2.3 % (0.0-7.0); Hematocrit 50.1 % (41.0-53.0); Hemoglobin 17.1 g/dL (13.5-17.5); Lymphocytes # (auto) 1.6 uL; Lymphocytes % (auto) 24.5 % (10.0-50.0); Mean Corpuscular Hemoglobin 32.6 pg (28.0-32.0); Mean Corpuscular Hgb Conc. 34.2 g/dL (32.0-36.0); Mean Corpuscular Volume 95.4 fL (80.0-100.0); Monocytes # (auto) 0.6 uL; Monocytes % (auto) 8.9 % (0.0-12.0); Neutrophils % (auto) 63.5 % (37.0-80.0); Platelet Count (auto) 233 10^3/uL (140-450); Red Blood Cells 5.25 10^6/uL (4.5-5.90); Red Cell Distribution Width 12.4 % (11.8-14.3); White Blood Cell 6.3 10^3/uL (4.4-10.8)
[2017-10-30 17:24] LABS: Alanine Aminotransferase 48 U/L (16-61); Albumin 3.6 g/dL (3.4-5.0); Alkaline Phosphatase 60 U/L (45-117); Anion Gap 6 (5-15); Aspartate Aminotransferase 33 U/L (15-37); BUN/Creatinine Ratio 9.8; Bilirubin, Total 0.7 mg/dL (0.2-1.0); Blood Urea Nitrogen 10 mg/dL (7-18); Calcium 8.9 mg/dL (8.5-10.1); Carbon Dioxide 26 mmol/L (21-32); Chloride 108 mmol/L (98-107); GFR African American 104 mL/min; GFR Non-African American 86 mL/min; Glucose 111 mg/dL (74-106); Potassium 3.8 mmol/L (3.5-5.1); Sodium 140 mmol/L (136-145); Total Protein 7.6 g/dL (6.4-8.2)
[2017-10-30 20:10] VITALS: BP 109/33
[2017-10-30] MEDS ORDERED: MORPHINE SULFATE 4 MG/ML SYR/VIAL IV ONE (20:15)
[2017-10-30] MEDS ORDERED: ONDANSETRON HCL 4 MG/2 ML VIAL IV ONE (20:15)
[2017-10-30] MEDS ORDERED: HYDROcodone-ACET 10/325MG TAB PO ONE (22:30)
== END 2017-10-30 23:37 | disposition home or self-care (01) ==
LOC: ER 14:32
DX: R06.02 Shortness of breath (principal); S39.012A Strain of muscle, fascia and tendon of lower back, initial encounter; M54.2 Cervicalgia; J45.909 Unspecified asthma, uncomplicated; E78.5 Hyperlipidemia, unspecified; I10 Essential (primary) hypertension; F17.210 Nicotine dependence, cigarettes, uncomplicated; Z86.73 Personal history of transient ischemic attack (TIA), and cerebral infarction without residual deficits; Z59.0 Homelessness; X58.XXXA Exposure to other specified factors, initial encounter; Y93.89 Activity, other specified; Y92.89 Other specified places as the place of occurrence of the external cause; Y99.8 Other external cause status
CPT/HCPCS: 36415; 71046; 72125; 72131; 80053; 83880; 84484; 85025; 93005; 96374; 96375; 99285; J2270; J2405

== ENCOUNTER 2018-01-16 14:16 | Emergency (ER) | payer MEDICAID ==
[~2018-01-16] VITALS: Ht 177.8 cm; Wt 81.6 kg
[~2018-01-16 14:16] MED LIST changes: +LOSA-46 PO; -LOSA50TA6 PO
[2018-01-16 14:41] VITALS: BP 133/67
[2018-01-16] MEDS: ACETAMINOPHEN 325 MG TAB PO ONE (15:15)
[2018-01-16 15:28] LABS: Basophils # (auto) 0 uL; Basophils % (auto) 0.2 % (0.0-2.0); Eosinophils # (auto) 0 uL; Eosinophils % (auto) 0.1 % (0.0-7.0); Hematocrit 48.1 % (41.0-53.0); Hemoglobin 16.9 g/dL (13.5-17.5); Lymphocytes # (auto) 1.9 uL; Lymphocytes % (auto) 11.3 % (10.0-50.0); Mean Corpuscular Hemoglobin 33.6 pg (28.0-32.0); Mean Corpuscular Hgb Conc. 35.2 g/dL (32.0-36.0); Mean Corpuscular Volume 95.5 fL (80.0-100.0); Monocytes # (auto) 2.1 uL; Monocytes % (auto) 12.6 % (0.0-12.0); Neutrophils # (auto) 12.6 uL; Neutrophils % (auto) 75.8 % (37.0-80.0); Platelet Count (auto) 205 10^3/uL (140-450); Red Blood Cells 5.03 10^6/uL (4.5-5.90); Red Cell Distribution Width 12.4 % (11.8-14.3); White Blood Cell 16.5 10^3/uL (4.4-10.8)
[2018-01-16 15:29] LABS: Albumin 3.1 g/dL (3.4-5.0)
[2018-01-16 15:33] LABS: BUN/Creatinine Ratio 9.1; Total Protein 7.1 g/dL (6.4-8.2)
== END 2018-01-16 15:43 | disposition home or self-care (01) ==
LOC: ER 14:16 → EDBD 14:16 → ER 15:18
DX: R10.31 Right lower quadrant pain (principal); R11.2 Nausea with vomiting, unspecified; E78.5 Hyperlipidemia, unspecified; I10 Essential (primary) hypertension; F17.210 Nicotine dependence, cigarettes, uncomplicated; J45.909 Unspecified asthma, uncomplicated; Z86.73 Personal history of transient ischemic attack (TIA), and cerebral infarction without residual deficits; Z59.0 Homelessness; Z88.9 Allergy status to unspecified drugs, medicaments and biological substances; Z88.6 Allergy status to analgesic agent; Z91.041 Radiographic dye allergy status; Z79.82 Long term (current) use of aspirin; Z79.899 Other long term (current) drug therapy
CPT/HCPCS: 36415; 74176; 80053; 83690; 85025

== ENCOUNTER 2018-02-28 15:42 | Emergency (ER) | payer MEDICAID ==
[~2018-02-28] VITALS: Ht 177.8 cm; Wt 90.7 kg
[2018-02-28 16:51] LABS: Basophils # (auto) 0 uL; Basophils % (auto) 0.4 % (0.0-2.0); Eosinophils # (auto) 0 uL; Eosinophils % (auto) 0.4 % (0.0-7.0); Hematocrit 45.8 % (41.0-53.0); Hemoglobin 15.4 g/dL (13.5-17.5); Lymphocytes # (auto) 1.2 uL; Lymphocytes % (auto) 15.4 % (10.0-50.0); Mean Corpuscular Hemoglobin 32.1 pg (28.0-32.0); Mean Corpuscular Hgb Conc. 33.5 g/dL (32.0-36.0); Mean Corpuscular Volume 95.8 fL (80.0-100.0); Monocytes # (auto) 0.7 uL; Monocytes % (auto) 9.7 % (0.0-12.0); Neutrophils # (auto) 5.7 uL; Neutrophils % (auto) 74.1 % (37.0-80.0); Nucleated Red Blood Cells % 0.1 %; Platelet Count (auto) 237 10^3/uL (140-450); Red Blood Cells 4.79 10^6/uL (4.5-5.90); White Blood Cell 7.7 10^3/uL (4.4-10.8)
[2018-02-28 16:59] LABS: Albumin 3.1 g/dL (3.4-5.0); Calcium 8.6 mg/dL (8.5-10.1); Potassium 4.2 mmol/L (3.5-5.1)
[2018-02-28 17:02] LABS: BUN/Creatinine Ratio 13.9; Bilirubin, Total 0.8 mg/dL (0.2-1.0); Total Protein 6.8 g/dL (6.4-8.2)
[2018-02-28 22:37] VITALS: BP 116/80
[2018-02-28] MEDS ORDERED: LIDOCAINE VISCOUS 2% 15ML UD PO ONE (23:00)
[2018-02-28] MEDS ORDERED: ALUM & MAG HYDROX-SIMETH LIQ(MAALOX) 30 ML PO ONE (23:00)
[2018-02-28] MEDS ORDERED: DONNATAL 5ml ORAL Elix (BELLADONNA ALK-PHENOBARB) PO ONE (23:00)
[2018-02-28] MEDS ORDERED: ONDANSETRON ODT 4 MG TAB PO ONE (23:00)
[2018-02-28] MEDS ORDERED: ONDANSETRON HCL 4 MG/2 ML VIAL IV ONE (23:15)
== END 2018-03-01 00:01 | disposition home or self-care (01) ==
LOC: ER 15:42 → EDBD 15:42 → ER 03-01 00:01
DX: K21.9 Gastro-esophageal reflux disease without esophagitis (principal); J90 Pleural effusion, not elsewhere classified; F17.210 Nicotine dependence, cigarettes, uncomplicated; J45.909 Unspecified asthma, uncomplicated; E78.5 Hyperlipidemia, unspecified; I10 Essential (primary) hypertension; F41.9 Anxiety disorder, unspecified; Z86.73 Personal history of transient ischemic attack (TIA), and cerebral infarction without residual deficits; Z88.6 Allergy status to analgesic agent
CPT/HCPCS: 36415; 74176; 80053; 85025; 93005; 96374; 99284; J2405

== ENCOUNTER 2018-03-08 10:10 | Inpatient (IN) | payer MEDICAID | END 2018-03-24 23:25 | disposition E | LOC: WEST WING 03-21 17:22 → ICU WEST 03-09 23:49 → ER 10:10 → TELE-CENTR 12:48 | PROC: 5A1955Z Respiratory Ventilation, Greater than 96 Consecutive Hours (ICD-10-PCS; principal; ~2018-03-08) | PROC: 0BH17EZ Insertion of Endotracheal Airway into Trachea, Via Natural or Artificial Opening (ICD-10-PCS; ~2018-03-08) | PROC: 0T9B70Z Drainage of Bladder with Drainage Device, Via Natural or Artificial Opening (ICD-10-PCS; ~2018-03-08) | DX: A41.9 Sepsis, unspecified organism (principal); K72.00 Acute and subacute hepatic failure without coma; J96.00 Acute respiratory failure, unspecified whether with hypoxia or hypercapnia; N17.0 Acute kidney failure with tubular necrosis; J96.01 Acute respiratory failure with hypoxia; R57.9 Shock, unspecified; R65.21 Severe sepsis with septic shock; I42.9 Cardiomyopathy, unspecified; E66.01 Morbid (severe) obesity due to excess calories; I46.9 Cardiac arrest, cause unspecified; G93.1 Anoxic brain damage, not elsewhere classified; I82.623 Acute embolism and thrombosis of deep veins of upper extremity, bilateral; I11.0 Hypertensive heart disease with heart failure; I50.42 Chronic combined systolic (congestive) and diastolic (congestive) heart failure; E87.5 Hyperkalemia; E87.6 Hypokalemia; I51.3 Intracardiac thrombosis, not elsewhere classified; F10.10 Alcohol abuse, uncomplicated; N18.9 Chronic kidney disease, unspecified ==